=== PATIENT | female | born 1980 | race Caucasian/White ===

== ENCOUNTER 2017-07-11 17:03 | Emergency (ER) | payer BC ==
[~2017-07-11] VITALS: Ht 154.9 cm; Wt 69.2 kg
[~2017-07-11 17:03] MED LIST: MULT-506 PO
[2017-07-11 17:10] VITALS: TEMP 36.6; Ht 154.9 cm; Wt 69.2 kg
[2017-07-11] MEDS ORDERED: HYDR25TA5 PO (17:48)
[2017-07-11] MEDS ORDERED: AMPH20CA3 PO (17:48)
--- NOTE | 2017-07-11 18:14 | EMERGENCY ROOM VISIT NOTE ---
History First contact with patient: 17:42 Chief Complaint: PALPITATIONS Stated Complaint: HEART PALPITATIONS, MUSCLE CRAMPS Nursing Triage Summary: Patient reports palpitations that started approx 45 mintues ago, patient reports her potassuim has been running low. Patient denies any chest pain or shortness of breath. History of Present Illness The patient is a 37 year old female who presents to the Emergency Room with complaints of intermittent palpitations. The patient states that today she is sitting down this afternoon waiting for her son's dentist appointment to finish, when she felt palpitations for one hour. She states that she felt her heart racing and it felt irregular. She said that she felt slightly unwell, but did not feel presyncopal or syncopal. Symptoms are now resolved. She denied any chest pain, shortness of breath, orthopnea or lower yoder edema. She has not had any coughing or wheezing. She states that this happened to her once last week. It was transient and improved after she ate 3 bananas. She went her PCPs office who did lab work and noted that she had borderline low potassium. She was advised by her PCP to return to the emergency room if symptoms ever recurred. She states that last week she also had a Holter monitor done which did not show any acute findings. She notes that she was started on hydrochlorothiazide 2 weeks ago because of elevated blood pressure. He also been on Adderall for the past 3 months for new diagnosis of adult ADHD. The states that her intake maybe slightly poorer last 2 weeks. 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 She denies any history of thyroid issues. She's not had any heat or cold intolerance. She denies any drug use. Review of Systems A 10 point review of systems was negative unless stated above. Past Medical/Surgical History History of preeclampsia Hypertension Adult ADHD Social History Smoking Status: Never Smoker Marital Status: Occupation Status: employed Current/Historical Medications Scheduled Amphetamine-Dextroamphetamine 20MG (Adderall Xr 20MG), 20 MG PO DAILY Hydrochlorothiazide (Hydrochlorothiazide), 25 MG PO DAILY Lisinopril (Zestril), 5 MG PO DAILY Allergies Latex allergy Physical Exam Vital Signs Date Time Temp Pulse Resp B/P (MAP) Pulse Ox O2 Delivery O2 Flow Rate FiO2 07/11/17 18:00 76 16 115/76 98 Room Air 10/19/17 17:15 98 Room Air 07/11/17 17:10 36.6 91 16 137/92 98 Room Air Pain Rating (0-10): 0 Physical Exam Constitutional: Vital signs as above were reviewed. Eyes: Pupils equal, round, and reactive to light. Extraocular muscles are intact. No proptosis. No photophobia. No except almost ENT: Mucous membranes are moist. Oropharynx is clear. No sinus tenderness. No enlarged gland; no thyroid nodule Cardiovascular: Heart with a regular rate and rhythm. No pedal edema appreciated. Respiratory: Lungs clear to auscultation bilaterally. No wheezes, rales, or rhonchi appreciated. No accessory muscle use. No retractions. No increased work of breathing. GI: Abdomen soft, nontender, nondistended. Normal active bowel sounds. No abdominal hernias appreciated. No rebound. No guarding. : No CVA tenderness appreciated. Musculoskeletal: No midline cervical or vertebral tenderness. No gross deformities. No bony tenderness. No calf swelling or tenderness. Integumentary: Warm, dry, no rashes appreciated. Neurological: Patient awake, alert, and oriented x 3. Cranial nerves two through 12 grossly intact. Lymph: No cervical lymphadenopathy appreciated. Medical Decision & Procedures ER Provider Diagnostic Interpretation: [~ rep ct add3]] SINGLE VIEW CHEST CLINICAL HISTORY: Palpitations. FINDINGS: An AP, portable, upright chest radiograph is obtained. No prior studies are available for comparison at the time of dictation. The examination is degraded by portable technique and patient rotation. The cardiomediastinal silhouette is unremarkable. The lungs and pleural spaces are clear. No pneumothorax is seen. The bony thorax is grossly intact. There is mild S-shaped thoracolumbar scoliosis. IMPRESSION: No active disease in the chest. Electronically signed by: Maximilian Pillai M.D. 07/11/2017 6:36 PM Dictated Date/Time: 07/11/2017 6:36 PM Laboratory Results 07/11/17 18:34 Red Blood Count 4.68, Mean Corpuscular Volume 84.0, Mean Corpuscular Hemoglobin 30.8, Mean Corpuscular Hemoglobin Concent 36.6, Mean Platelet Volume 12.0, Neutrophils (%) (Auto) 59.9, Lymphocytes (%) (Auto) 28.8, Monocytes (%) (Auto) 9.7, Eosinophils (%) (Auto) 1.1, Basophils (%) (Auto) 0.4, Neutrophils # (Auto) 4.37, Lymphocytes # (Auto) 2.10, Monocytes # (Auto) 0.71, Eosinophils # (Auto) 0.08, Basophils # (Auto) 0.03 07/11/17 18:34 Test 07/11/17 18:34 White Blood Count 7.30 K/uL (4.8-10.8) Red Blood Count 4.68 M/uL (4.2-5.4) Hemoglobin 14.4 g/dL (12.0-16.0) Hematocrit 39.3 % (37-47) Mean Corpuscular Volume 84.0 fL (80-100) Mean Corpuscular Hemoglobin 30.8 pg (25-34) Mean Corpuscular Hemoglobin Concent 36.6 g/dl (32-36) Platelet Count 168 K/uL (130-400) Mean Platelet Volume 12.0 fL (7.4-10.4) Neutrophils (%) (Auto) 59.9 % Lymphocytes (%) (Auto) 28.8 % Monocytes (%) (Auto) 9.7 % Eosinophils (%) (Auto) 1.1 % Basophils (%) (Auto) 0.4 % Neutrophils # (Auto) 4.37 K/uL (1.4-6.5) Lymphocytes # (Auto) 2.10 K/uL (1.2-3.4) Monocytes # (Auto) 0.71 K/uL (0.11-0.59) Eosinophils # (Auto) 0.08 K/uL (0-0.5) Basophils # (Auto) 0.03 K/uL (0-0.2) RDW Standard Deviation 38.3 fL (36.4-46.3) RDW Coefficient of Variation 12.7 % (11.5-14.5) Immature Granulocyte % (Auto) 0.1 % Immature Granulocyte # (Auto) 0.01 K/uL (0.00-0.02) Anion Gap 6.0 mmol/L (3-11) Est Creatinine Clear Calc Drug Dose 97.0 ml/min Estimated GFR () 125.8 Estimated GFR (Non- 108.5 BUN/Creatinine Ratio 13.1 (10-20) Calcium Level 9.2 mg/dl (8.5-10.1) Magnesium Level 2.0 mg/dl (1.8-2.4) Troponin I < 0.015 ng/ml (0-0.045) Thyroid Stimulating Hormone (TSH) 0.789 uIu/ml (0.300-4.500) Medications Administered Medications (Trade) Dose Ordered Sig/Cristino Route Start Time Stop Time Status Last Admin Dose Admin Sodium Chloride 1,000 ml @ 999 mls/hr Q1H1M IV 07/11/17 18:45 08/10/17 18:44 07/11/17 18:20 999 MLS/HR ECG Change: NSR Rate 98 Non-specific ST and T wave abnormalities (no definite ST or T wave changes) Compared to ambulatory EKG form 07/02; EKG is comparable to today's ED Course 17:50 - The patient was seen and evaluated by Dr. Sotero Lerma MD [address] Medicine Labs: CBC, BMP, TSH, Troponin, EKG Chest X-ray 18:05 - EKG reviewed; regular rate and rhythm, rate of 98; no acute ST or T- wave changes that there are nonspecific ST-T wave changes noted; no ectopy or pauses 19:45 - Logged on to [facility] EMR to review patient outpatient records Reviewed most recent EKG with todays EKG: there are no acute changes Reviewed ambulatory notes, with PCP noting possible anxiety as a component of symptoms. Reviewed Holter monitor which revealed a daily baseline heart rate in the high 90s. Labs were reviewed; K3.0 was noted; labs are otherwise unremarkable; normal TSH; negative troponin 19:50 - discuss lab findings and my review of the endotracheal records with the patient Recommended holding hydrochlorothiazide and starting lisinopril Discharged home with PCP follow up in one week; patient agreeable to plan 20:00 - Discharge paperwork completed Medical Decision 37-year-old female with an hour of palpitations. Diagnosis could include anxiety, arrhythmia, drug intoxication, anemia, dehydration, electrolyte abnormality. EKG did not reveal any arrhythmia. We checked a troponin which was normal. We had the opportunity to look at her and believed her records. Her EKG from 1 week ago was comparable to today's EKG. I also looked at a 24 hour Holter monitor report that was done on 07/02/2017. This did show she has an elevated baseline heart rate averaging 99 bpm. Her waking heart rate averages greater than 100 bpm. She did have a total of 98 ventricular ectopic beats. We did check a TSH level here which was normal. Her potassium was 3.0. This is been a concern for her and she notes that her potassium has been going on since starting hydrochlorothiazide. I recommended she stop hydrochlorothiazide and start lisinopril 5 mg which may help improve her potassium levels. I made a note to her PCP regarding this and placed orders in her ambulatory chart to get a BMP in 2-3 days and to see her PCP in one week. Review the ambulatory charts also suggested consideration for anxiety/panic attack as a possible cause for her episodic palpitations. Furthermore there is also consideration for the role of Adderall, though she has tolerated this for the past 3 months without any recent dose changes so is unclear as to why palpitations related to this medication would start now. Another role for Adderall would be alterations in diet, which may play a role in her daily food intake. If there are major changes in her intake this could affect her potassium levels which are noted on this ED visit. We discussed all her lab findings with her. We also discussed with our review of her outpatient records. We recommended she start lisinopril and stop hydrochlorothiazide. We instructed her to get labs done in 1 week and see her PCP for follow-up. The patient was agreeable to this plan. She was discharged home in stable condition. Head Trauma GCS Score: 15 Medication Reconcilliation Current Medication List: was personally reviewed by me Blood Pressure Screening Patient's blood pressure: Normal blood pressure Impression Primary Impression: Palpitation Additional Impression: Hypokalemia Departure Information Dispostion Home / Self-Care Condition GOOD Prescriptions Lisinopril (Zestril) 5 Mg Tab 5 MG PO DAILY for 30 Days, #30 TAB Prov: Sotero Lerma MD 07/11/17 Referrals Tawnya Castillo PA-C (PCP) Patient Instructions [facility] Additional Instructions You came to the emergency department for palpitations. We did an EKG we do did not show any concerning findings. We checked your lab work and your potassium was low at 3.0. You did note us that you recently started on hydrochlorothiazide and that your potassium has been steadily going down. At this time, we recommend to stop your Hydrochlorothiazide. Instead we will start you on lisinopril 5 mg by mouth every day. This may help increase her potassium levels. At this time we will not give you any additional potassium supplementation. Because you are on Adderall, this can affect your appetite, you need to be careful to make sure that you get enough food every day. Not eating enough can cause imbalances and your potassium levels. We will make a note your primary care provider regarding the changes that were made today. We reviewed the Holter monitor that she had done last week. Because you have not had symptoms while being on on any kind of monitoring, you may require more prolonged Holter monitoring, which can be ordered by her primary care provider. When you go home, please make sure that she stay well hydrated. Please take Tylenol or Motrin as needed for fever or pain. If your symptoms fail to improve or acutely worsen, please seek medical attention immediately by either calling your primary care provider or going to your nearest emergency department. Otherwise, please see your primary care provider within 1 week to ensure that your symptoms continue to improve. You should have repeat lab work to check your potassium level and kidney function in 1 week, as lisinopril can affect these. It was a pleasure to be involved in your care and we wish you all the best. Problem Qualifiers
--- NOTE | 2017-07-11 18:38 | DIAGNOSTIC IMAGING REPORT ---
SINGLE VIEW CHEST CLINICAL HISTORY: Palpitations. FINDINGS: An AP, portable, upright chest radiograph is obtained. No prior studies are available for comparison at the time of dictation. The examination is degraded by portable technique and patient rotation. The cardiomediastinal silhouette is unremarkable. The lungs and pleural spaces are clear. No pneumothorax is seen. The bony thorax is grossly intact. There is mild S-shaped thoracolumbar scoliosis. IMPRESSION: No active disease in the chest. Electronically signed by: Maximilian Pillai M.D. 07/11/2017 6:36 PM Dictated Date/Time: 07/11/2017 6:36 PM
[2017-07-11] MEDS ORDERED: SODIUM CHLORIDE 0.9% 1000ML 1,000 ML IV SCH (18:45)
[2017-07-11 18:50] LABS: BASO % 0.4 %; BASO ABS # 0.03 K/uL (0-0.2); COMPLETE YES; EOS % 1.1 %; HEMATOCRIT 39.3 % (37-47); IG% 0.1 %; LYMPH % 28.8 %; MEAN CORPUSCULAR HEMOGLOBIN 30.8 pg (25-34); MEAN CORPUSCULAR HGB CONC 36.6 g/dl (32-36); MONO % 9.7 %; NEUT % 59.9 %; PLATELET COUNT 168 K/uL (130-400); RED BLOOD COUNT 4.68 M/uL (4.2-5.4)
[2017-07-11 19:12] LABS: BLOOD UREA NITROGEN 10 mg/dl (7-18); BUN/CREATININE RATIO 13.1 (10-20); CALCIUM 9.2 mg/dl (8.5-10.1); CARBON DIOXIDE 27 mmol/L (21-32); CHLORIDE 103 mmol/L (98-107); CREATININE 0.72 mg/dl (0.60-1.20); GLUCOSE 90 mg/dl (70-99); SODIUM 136 mmol/L (136-145)
[2017-07-11 19:23] LABS: THYROID STIMULATING HORMONE 0.789 uIu/ml (0.300-4.500)
[2017-07-11] MEDS ORDERED: LISI-729 PO (19:58)
[2017-07-11 21:58] VITALS: BP 133/83; PULSE 96; O2SAT 99
--- NOTE | 2017-07-12 03:52 | EMERGENCY ROOM VISIT NOTE ---
ED Visit Note First contact with patient: 17:43 HPI: Palpitations x 1 hour EVP STRATEGY PE: AFVSS, NAD NC/AT RRR, no murmurs CTAB Abd soft NT/ND Ext: no edema, erythema Neuro: grossly intact Plan: EKG unremarkable. Heart score 1, low risk. ACS unlikely. PERC negative. PE not likely. Sx improved with IVF. K slightly low on HCTZ. Will have patient switch to Lisinopril for now until able to f/u with pcp for close f/u. Resident to message pcp regarding changes. I reviewed the patient's past medical history, medications, and visit nursing notes. I discussed the case with the resident physician, examined the patient, and agree with the findings and plan as documented in the residents note unless otherwise clarified here by me.
== END 2017-07-11 21:59 | disposition home or self-care (01) ==
LOC: C.EDB 17:06
DX: R00.2 Palpitations (principal); E87.6 Hypokalemia; I10 Essential (primary) hypertension; F90.9 Attention-deficit hyperactivity disorder, unspecified type

== ENCOUNTER → 2017-11-04 | Outpatient (CLI) | payer OTHER ==
[~2017-11-04] MED LIST changes: +AMPH20CA3 PO; +HYDR25TA5 PO; -MULT-506 PO
== END | disposition home or self-care (01) ==
LOC: C.LABSPEC 15:58
PROVIDERS: ATTEND Obstetrics & Gynecology
DX: Z34.81 Encounter for supervision of other normal pregnancy, first trimester (principal)

== ENCOUNTER → 2017-11-20 | Outpatient (CLI) | payer OTHER | END | disposition home or self-care (01) | LOC: C.LABSPEC 13:07 | PROVIDERS: ATTEND Obstetrics & Gynecology | DX: O09.521 Supervision of elderly multigravida, first trimester (principal) ==